=== PATIENT | male | born 1955 | race Caucasian/White ===

== ENCOUNTER 2020-03-28 06:00 | Inpatient (IN) ==
[2020-03-28] MEDS ORDERED: PHENobarb/HYOSCY/ATROPINE/SCOP 1 DOSE BOTTLE PO ONE (06:09)
[2020-03-28] MEDS ORDERED: PANTOPRAZOLE 40 MG VIAL IV ONE (06:09)
[2020-03-28] MEDS: HYDROmorphone 0.5 MG/0.5 ML SYRINGE IV PRN ×6 (06:34→13:10)
[2020-03-28 06:54] LABS: Basophils # (Auto) 0.04 K/mcL (0.00-0.20); Basophils % (Auto) 0.3 % (0.0-2.0); Eosinophils # (Auto) 0.17 K/mcL (0.00-0.70); Eosinophils % (Auto) 1.1 % (0.0-7.0); Hematocrit 46.1 % (41.0-55.0); Hemoglobin 15.9 g/dL (13.5-16.5); Lymphocytes # (Auto) 2.39 K/mcL (1.50-4.80); Lymphocytes % (Auto) 15.6 % (15.0-49.0); Mean Cell Volume 99.1 fL (80.0-100.0); Mean Corpuscular HGB Conc 34.5 g/dL (31.0-36.0); Mean Platelet Volume 11.6 fL (7.4-10.4); Monocytes # (Auto) 1.18 K/mcL (0.10-0.90); Monocytes % (Auto) 7.7 % (1.0-12.0); Neutrophils % (Auto) 75.3 % (38.0-78.0); Platelet Count 250 K/mcL (140-440); RBC 4.65 M/mcL (4.50-5.90); Red Cell Distribution Width 12.1 % (11.5-14.5); WBC 15.3 K/mcL (4.5-11.0)
[2020-03-28] MEDS ORDERED: LACTATED RINGERS 1,000 ML IV ONE (06:56)
--- NOTE | 2020-03-28 06:59 | Emergency Department Note ---
Abdominal Pain HPI General Chief Complaint: Abdominal Pain Stated Complaint: abdominal pain Time Seen by Provider: 03/28/20 06:52 Source: patient and RN notes reviewed Mode of arrival: ambulatory Limitations: no limitations History of Present Illness HPI Narrative: Narrative: This patient started having moderately severe epigastric pain about 6 hours ago. It is sharp like a hot poker and goes straight through to the back. Does not radiate anywhere else. He has never had pain like this before although he has h ad heartburn in the past. He had one episode of vomiting. He does still have his gallbladder. He says he is never any trouble with his pancreas. Denies drinking alcohol last night. Complaint: abdominal pain Onset (ago): hour(s) Consistency: constant Location: epigastric Severity: moderate Quality: stabbing and sharp Radiation: back Migration to: no migration Improves with: nothing Worsens with: nothing Related Data Home Medications Medication Instructions Recorded Confirmed methocarbamol [Robaxin] 500 mg PO PRN PRN 09/08/15 09/10/15 Previous Rx's Medication Instructions Recorded aspirin 325 mg PO BID #60 tab.ec 09/11/15 hydrocodone-acetaminophen 1 - 2 tab PO Q4HP PRN #90 tablet 09/11/15 lisinopril 20 mg PO Q6H PRN #20 tablet 09/11/15 Allergies Allergy/AdvReac Type Severity Reaction Status Date / Time No Known Drug Allergies Allergy Verified 03/28/20 06:05 Review of Systems ROS ROS Narrative: Narrative: All systems ED: reviewed and negative except as stated. [facility] Narrative Patient History Narrative: Narrative: Medical/Surgical/Family History All Active Problems (Updated 03/28/20 @ 08:17 by Paco Taylor MD) Acute cholecystitis (Acute) Social History Smoking Status: Current every day smoker Exam Narrative Narrative: Narrative: General Limitations: no limitations Head Head: Present atraumatic, normocephalic and normal inspection Eye Eye: Present normal appearance and EOMI; Absent scleral icterus and conjunctival injection ENT ENT: Present normal exam, normal oropharynx and mucous membranes moist Neck Neck: Present normal inspection and full ROM Chest Chest: Present normal inspection and symmetric chest wall rise Respiratory Respiratory: Present normal lung sounds bilaterally Cardiovascular Cardiovascular: Present regular rate, normal rhythm and normal heart sounds Adbominal Abdominal: Present soft and tenderness; Absent distention, guarding, rebound and rigidity Expanded Abdominal Abdominal Tenderness: Present epigastrium and moderate Extremities Extremities: Present normal inspection and full ROM; Absent pedal edema and pretibial edema Neurological Neurological: Present alert Psychiatric Psychiatric: Present normal affect Skin Skin: Present warm (WNL) and dry; Absent diaphoresis Course Vital Signs Vital signs: Vital Signs Temperature 98.0 F 03/28/20 06:00 Pulse Rate 62 03/28/20 06:00 Respiratory Rate 20 03/28/20 06:00 Pulse Oximetry (%) 97 03/28/20 06:00 Temperature 98.0 F 03/28/20 06:00 Pulse Rate 59 L 03/28/20 07:56 Respiratory Rate 20 03/28/20 06:00 Blood Pressure 164/65 03/28/20 07:32 Pulse Oximetry (%) 98 03/28/20 07:56 MDM MDM Narrative Medical decision making narrative: Narrative: This patient has uncomplicated cholecystitis and we will give him Zosyn. Lab Data Lab results reviewed: Yes I reviewed the patient's lab results. Lab results narrative: White blood cell count was elevated the liver function tests are unremarkable and lipase was normal. I discussed the case with our general surgeon who will come in and see the patient for admission and probably cholecystectomy this morning. Result diagrams: 03/28/20 06:17 03/28/20 06:17 Labs: Lab Results 03/28/20 03/28/20 Range/Units 06:17 06:17 WBC 15.3 H (4.5-11.0) K/mcL RBC 4.65 (4.50-5.90) M/mcL Hgb 15.9 (13.5-16.5) g/dL Hct 46.1 (41.0-55.0) % MCV 99.1 (80.0-100.0) fL MCH 34.2 H (26.0-34.0) pg MCHC 34.5 (31.0-36.0) g/dL RDW 12.1 (11.5-14.5) % Plt Count 250 (140-440) K/mcL MPV 11.6 H (7.4-10.4) fL Neut % (Auto) 75.3 (38.0-78.0) % Lymph % (Auto) 15.6 (15.0-49.0) % [place] % (Auto) 7.7 (1.0-12.0) % Eos % (Auto) 1.1 (0.0-7.0) % Baso % (Auto) 0.3 (0.0-2.0) % Lymph # (Auto) 2.39 (1.50-4.80) K/mcL [place] # (Auto) 1.18 H (0.10-0.90) K/mcL Eos # (Auto) 0.17 (0.00-0.70) K/mcL Baso # (Auto) 0.04 (0.00-0.20) K/mcL Absolute Neutrophils 11.55 H (1.80-8.00) K/mcL Sodium 135 (133-145) mmol/L Potassium 3.6 (3.3-5.1) mmol/L Chloride 102 (96-108) mmol/L Carbon Dioxide 22 (22-30) mmol/L Anion Gap 11.0 (8.0-16.0) BUN 19 (8-23) mg/dL Creatinine 1.0 (0.7-1.2) mg/dL GFR Calculation 79 Glucose 163 H (70-105) mg/dL Calcium 9.7 (8.6-10.4) mg/dL Total Bilirubin 0.6 (0.1-1.0) mg/dL AST 17 (<40) U/L ALT 17 (<40) U/L Alkaline Phosphatase 81 (39-117) U/L Total Protein 7.4 (5.9-8.4) gm/dL Albumin 4.3 (3.2-5.2) gm/dL Globulin 3.1 (2.2-3.7) gm/dL Albumin/Globulin Ratio 1.4 (1.0-2.3) Lipase 37 (7-60) U/L Radiology Data Radiology results reviewed: Yes I reviewed the patient's radiology results. Radiology results narrative: Patient is gallbladder ultrasound is abnormal with gallstones sludge and gallbladder wall thickening but normal common bile ducts. Discharge Plan Patient/Caregiver Discharge Instructions Pt seen by DIRECTOR EMBALMER/PA only: No Clinical Impression: Acute cholecystitis Patient Disposition: Xfer As Inpt ([facility]) Follow up with: Fast,Eliot, PLEXIGLAS FORMER [Primary Care Provider] - Prescriptions: No Action methocarbamol [Robaxin] 500 MG Tablet 500 mg PO PRN PRN (Reason: Muscle Spasm) RF: 0 lisinopril 20 MG Tablet 20 mg PO Q6H PRN (Reason: Hypertension) Qty: 20 RF: 0 hydrocodone-acetaminophen 1 TAB Tablet 1 - 2 tab PO Q4HP PRN (Reason: Pain) Qty: 90 RF: 0 aspirin 325 MG Tab.Ec 325 mg PO BID Qty: 60 RF: 0
[2020-03-28 07:09] LABS: ALT/SGPT 17 U/L (<40); AST/SGOT 17 U/L (<40); Albumin 4.3 gm/dL (3.2-5.2); Albumin/Globulin Ratio 1.4 (1.0-2.3); Alkaline Phosphatase 81 U/L (39-117); Bilirubin,Total 0.6 mg/dL (0.1-1.0); Blood Urea Nitrogen 19 mg/dL (8-23); Calcium 9.7 mg/dL (8.6-10.4); Carbon Dioxide 22 mmol/L (22-30); Chloride 102 mmol/L (96-108); Globulin 3.1 gm/dL (2.2-3.7); Glomerular Filtration Rate 79; Glucose 163 mg/dL (70-105)
[2020-03-28] MEDS ORDERED: PIPERACILLIN SODIUM/TAZOBACTAM 3.375 GM in DEXTROSE 5% IN WATER 50 ML IV ONE (08:12)
--- NOTE | 2020-03-28 08:18 | Ultrasound Report ---
History: Right upper quadrant pain. FINDINGS: There are several stones and a large sludge ball within the lumen of the gallbladder. There is a 5 x 6 mm stone in the neck. The gallbladder wall is thickened and inflamed. Measures 4 mm. The patient was tender while scanning over the gallbladder. No pericholecystic fluid collection is present. The common bile duct is 5 mm. The liver is echogenic due to diffuse fatty infiltration. There are two hypoechoic zones of liver parenchyma. The largest is beneath the capsule, adjacent to the gallbladder. It measures 1.4 x 2.0 x 3.2 cm. These probably represent islands of relatively normal liver surrounded by fatty infiltration. No suspicious mass is seen within the liver. Doppler shows normal blood flow in the hepatic and portal veins. The pancreas is obscured by bowel gas. No ascites is present. IMPRESSION: Cholelithiasis with cholecystitis Diffuse fatty infiltration of the liver Dr. Taylor was called with the results Interpreted and Authenticated by: Carlos Seo 03/28/20
--- NOTE | 2020-03-28 10:08 | General Surg History&Physical ---
HPI History of Present Illness Patient information: Note initiated : 03/28/20 at 9:55 am Service Date, if different from initiated Date: [] Patient: Jacob Odonnell 64 y/o M admitted on for abdominal pain. Chief Complaint:abd pain History of present illness: 64 M with 1PPD smoking hx and pre DM presents with some 10hrs of progressive RUQ pain following dinner last night. Pain is a constant marked ache at costal margin with associated emisis and malase. Pain radiates to epigastrium and along R costal margin. He has never had episodes even of less intesity that are similar in past. He feels ill. ED course - WBC 15, US shows numerous impacted stones in neck of gallbladder with wall thickening. CBC 5mm, T bili 0.6, Lipase 37 PMH HTN Pre DM Restless leg syndrome Chronic back pain PSH - hip surgery - spine surgery SOC Lives in [place], 1PPD smoker, 1 drink every month or so, no other drugs Fam Hx No family history of gallbladder disease Constitutional Constitutional: Present fatigue, lethargy and malaise EENT Eyes: Absent loss of vision Ears: Absent decreased hearing Cardiovascular Cardiovascular: Absent syncope Respiratory Respiratory: Absent excessive phlegm production Gastrointestinal Gastrointestinal: Present abdominal pain and vomiting Musculoskeletal Musculoskeletal: Present back pain Integumentary Integumentary: Absent acne Neurological Neurological: Absent loss of vision Psychiatric Psychiatric: Absent auditory hallucinations Endocrine Endocrine: Absent palpitations Allergic/Immunologic Allergic/Immunologic: Absent tongue swelling PFSH PFSH All Active Problems (Updated 03/28/20 @ 10:08 by Charlie Nunes MD) Acute cholecystitis due to biliary calculus (Acute) Acute cholecystitis (Acute) Social History smoking status: Current every day smoker MEDS/ALLERGIES Home Medications and Allergies Home Medications Medication Instructions Recorded Confirmed Type methocarbamol [Robaxin] 500 mg PO PRN PRN 09/08/15 09/10/15 History aspirin 325 mg PO BID #60 tab.ec 09/11/15 Rx hydrocodone-acetaminophen 1 - 2 tab PO Q4HP PRN #90 tablet 09/11/15 Rx lisinopril 20 mg PO Q6H PRN #20 tablet 09/11/15 Rx Allergies Allergy/AdvReac Type Severity Reaction Status Date / Time No Known Drug Allergies Allergy Verified 03/28/20 06:05 Physical Examination Vital Signs Vital signs: Temp Pulse Resp BP Pulse Ox 36.7 C 54 L 20 164/65 96 03/28/20 06:00 03/28/20 08:29 03/28/20 06:00 03/28/20 07:32 03/28/20 08:29 General physical appearance General physical exam: well nourished, no distress and moderate pain Eyes Eye exam: PERRL Head Head exam IM: Present atraumatic and normocephalic Neck Neck exam: trachea midline and no lymphadenopathy Cardiovascular Cardiovascular: RRR, strong radial pulse Respiratory Respiratory exam: normal expansion and normal respiratory effort Abdomen Abdomen: Present soft (Small umbilical hernia, no surgical scars, nondistended, dull to percussion, no HSM, tender to palpation over GB fossa with + Huynh sign, no rebound, neg bedshake, minimal localized reflexive guarding. ) Integumentary Integumentary: Present no rash Neurologic Neurologic: Present normal coordination Musculoskeletal Musculoskeletal: Present normal posture Psychiatric Psychiatric: Present oriented to time, oriented to person, oriented to place, speech is normal and memory intact Results Labs Result diagrams: 03/28/20 06:17 03/28/20 06:17 Labs: Abnormal lab results 03/28/20 03/28/20 Range/Units 06:17 06:17 WBC 15.3 H (4.5-11.0) K/mcL MCH 34.2 H (26.0-34.0) pg MPV 11.6 H (7.4-10.4) fL [place] # (Auto) 1.18 H (0.10-0.90) K/mcL Absolute Neutrophils 11.55 H (1.80-8.00) K/mcL Glucose 163 H (70-105) mg/dL Diabetes panel 03/28/20 Range/Units 06:17 Sodium 135 (133-145) mmol/L Potassium 3.6 (3.3-5.1) mmol/L Chloride 102 (96-108) mmol/L Carbon Dioxide 22 (22-30) mmol/L BUN 19 (8-23) mg/dL Creatinine 1.0 (0.7-1.2) mg/dL Glucose 163 H (70-105) mg/dL Calcium 9.7 (8.6-10.4) mg/dL AST 17 (<40) U/L ALT 17 (<40) U/L Alkaline Phosphatase 81 (39-117) U/L Total Protein 7.4 (5.9-8.4) gm/dL Albumin 4.3 (3.2-5.2) gm/dL Calcium panel 03/28/20 Range/Units 06:17 Calcium 9.7 (8.6-10.4) mg/dL Albumin 4.3 (3.2-5.2) gm/dL Pituitary panel 03/28/20 Range/Units 06:17 Sodium 135 (133-145) mmol/L Potassium 3.6 (3.3-5.1) mmol/L Chloride 102 (96-108) mmol/L Carbon Dioxide 22 (22-30) mmol/L BUN 19 (8-23) mg/dL Creatinine 1.0 (0.7-1.2) mg/dL Glucose 163 H (70-105) mg/dL Calcium 9.7 (8.6-10.4) mg/dL Adrenal panel 03/28/20 Range/Units 06:17 Sodium 135 (133-145) mmol/L Potassium 3.6 (3.3-5.1) mmol/L Chloride 102 (96-108) mmol/L Carbon Dioxide 22 (22-30) mmol/L BUN 19 (8-23) mg/dL Creatinine 1.0 (0.7-1.2) mg/dL Glucose 163 H (70-105) mg/dL Calcium 9.7 (8.6-10.4) mg/dL Total Bilirubin 0.6 (0.1-1.0) mg/dL AST 17 (<40) U/L ALT 17 (<40) U/L Alkaline Phosphatase 81 (39-117) U/L Total Protein 7.4 (5.9-8.4) gm/dL Albumin 4.3 (3.2-5.2) gm/dL All other labs normal. A/P Assessment and plan (1) Acute cholecystitis due to biliary calculus: Status: Acute Comment: 64 yo man presents with marked RUQ pain following meal last night. Now with quite tender at GB fossa with WBC 15 and US showing numerous obstructing gallstones with gallbladder wall thickening to 4mm diagnostic of acute cholecystisis. He does not have evidence of biliary obstruciton with normal CBD measurement, T bili, and lipase. Plan To OR today for lap indu, possible open, possible IOC Received PIP/NASIM in ED Starting home BP and statin meds Low dose insulin for hyperglycemia Risk of surgery including - bleeding, infection, injury to bile ducts, need for open surgery all discussed Charlie Nunes MD Time Spent With Patient Time: Total time spent is greater than 50% in coordination of care (as documented) at patient's floor/unit and/or counseling patient:
[2020-03-28 13:54] LABS: Appearance,Urine CLEAR (Clear); Bilirubin,Urine Negative (Negative); Color,Urine YELLOW; Culture Indicated,Urine No; Glucose,Urine (UA) Negative (Negative); Ketones,Urine Negative (Negative); Leukocyte Esterase,Urine Negative /ug (Negative); Mucus,Urine FEW /hpf; Nitrate,Urine Negative (Negative); Protein,Urine 30 mg/dL (Negative); Specific Gravity,Urine 1.017 (1.000-1.035); Urine Blood Negative (Negative); Urine RBC 3 /hpf (0-3); Urine Squamous Epithelial Cell 0 /hpf (0-4); Urine WBC < 1 /hpf (0-4); Urobilinogen,Urine Negative
[2020-03-28] MEDS ORDERED: KETAMINE 100 MG/ML ML ONE (15:40)
[2020-03-28] MEDS ORDERED: LIDOCAINE HCL/PF 100 MG/5 ML SYRINGE IV ONE (15:40)
[2020-03-28] MEDS ORDERED: SUGAMMADEX SODIUM 200 MG/2 ML VIAL IV ONE (15:40)
[2020-03-28] MEDS ORDERED: ONDANSETRON 4 MG/2 ML VIAL ONE (15:40)
[2020-03-28] MEDS ORDERED: HETASTARCH 6% 500 ML BAG IV ONE (15:40)
[2020-03-28] MEDS ORDERED: ROCURONIUM 10 MG/ML ML IV ONE (15:40)
[2020-03-28] MEDS ORDERED: GLUCAGON,HUMAN RECOMBINANT 1 MG VIAL ONE ×2 (15:40→18:33)
[2020-03-28] MEDS: cefTRIAXone 2 GM in DEXTROSE 5% IN WATER 50 ML IV SCH (15:40)
[2020-03-28] MEDS ORDERED: fentaNYL 250 MCG/5 ML VIAL IV ONE (15:40)
[2020-03-28] MEDS ORDERED: DEXAMETHASONE 10 MG/ML VIAL ONE (15:40)
[2020-03-28] MEDS ORDERED: PROPOFOL 200 MG/20 ML VIAL IV ONE (15:40)
[2020-03-28] MEDS: metroNIDAZOLE 500 MG/100 ML BAG IV SCH ×2 (16:00→22:11)
[2020-03-28] MEDS ORDERED: 0.9 % SODIUM CHLORIDE 250 ML IV SCH (17:30)
[2020-03-28] MEDS ORDERED: IOVERSOL 20 ML VIAL IJ ONE (18:16)
[2020-03-28] MEDS ORDERED: MEPERIDINE 25 MG/ML SYRINGE IV PRN (19:23)
[2020-03-28] MEDS ORDERED: LACTATED RINGERS 250 ML IV PRN (19:23)
[2020-03-28] MEDS ORDERED: NALOXONE HCL 0.4 MG/ML VIAL IV PRN (19:23)
[2020-03-28] MEDS ORDERED: ACETAMINOPHEN 1,000 MG/100 ML BAG IV ONE ×3 (19:23→23:17)
[2020-03-28] MEDS ORDERED: ONDANSETRON 4 MG/2 ML VIAL IV PRN ×2 (19:23→22:03)
[2020-03-28] MEDS ORDERED: PROMETHAZINE 25 MG/ML VIAL IV PRN (19:23)
[2020-03-28] MEDS ORDERED: BENZOCAINE/MENTHOL 1 LOZENGE PO PRN (19:23)
[2020-03-28] MEDS ORDERED: HYDROmorphone 0.5 MG/0.5 ML SYRINGE IV PRN (19:23)
[2020-03-28] MEDS ORDERED: fentaNYL 100 MCG/2 ML VIAL IV PRN (19:23)
[2020-03-28] MEDS ORDERED: diphenhydrAMINE 50 MG/ML VIAL IV PRN (19:23)
[2020-03-28] MEDS ORDERED: IPRATROPIUM/ALBUTEROL 3 ML AMPUL.NEB NEB PRN (19:23)
[2020-03-28] MEDS ORDERED: LACTATED RINGERS 1,000 ML IV SCH (19:30)
[2020-03-28] MEDS ORDERED: BUPIVACAINE W/EPI 0.25% 50 ML VIAL IJ ONE (19:34)
--- NOTE | 2020-03-28 20:54 | Brief Operative Note ---
Brief Operative Note Date of procedure: 03/28/20 Pre-op diagnosis: acute cholecystis Post-op diagnosis: other (1) acute cholecystitis, 2) chronic cholecystitis with leather like gallbladder, 3) extensive intraperitoneal adhesions ) Procedure: 1) Lap converted to open cholecystectomy 2) IOC 3) Lap and open RABIA 4) cystic duct repair Grafts/Implants: No Anesthesia: GETA Findings: 1) extensive intra abdominal adhesions 2) Leather like chronically thickened gallbladder to 10mm wall thickness near infundibulum - 3) R lateral bile duct injury confirmed to be a loop of cystic duct on cholangiogram. Unable to dissect tissues to clip - closed transversely with vicryl sutures. 4) Drains placed Drain A, Lateral ->morrisons pouch Drain B, medial -> GB fossa Complications: other (1) bile duct injury: identifed as cystic duct injury on cholangiogram - repaired ) Surgeon: Charlie Nunes Estimated blood loss (cc): 100 Specimens Removed/Pathology: other (Gallbladder ) Condition: stable Disposition: PACU
[2020-03-28] MEDS ORDERED: METHOCARBAMOL 750 MG TABLET PO PRN (21:40)
[2020-03-28] MEDS ORDERED: DEXTROSE 31 GM ORAL.SUSP PO PRN (21:40)
[2020-03-28] MEDS ORDERED: LOSARTAN 25 MG TABLET PO ONE (21:40)
[2020-03-28] MEDS ORDERED: HEPARIN 5,000 UNIT/ML VIAL SQ SCH ×2 (21:40→22:00)
[2020-03-28] MEDS ORDERED: INSULIN LISPRO 1 UNIT/0.01 ML UNIT SQ SCH (21:40)
[2020-03-28] MEDS ORDERED: INSULIN GLARGINE, HUMAN 1 UNIT/0.01 ML SQ SCH ×2 (21:40→22:00)
[2020-03-28] MEDS ORDERED: ATORVASTATIN 10 MG TABLET PO SCH (21:40)
[2020-03-28] MEDS ORDERED: DEXTROSE 50% 50 ML VIAL IV PRN (21:40)
[2020-03-28] MEDS ORDERED: INSULIN LISPRO 1 UNIT/0.01 ML UNIT SQ ONE (21:47)
[2020-03-28] MEDS ORDERED: hydrALAZINE 20 MG/ML VIAL IV PRN (22:02)
[2020-03-28] MEDS ORDERED: PROMETHAZINE 50 MG/ML AMPUL IM PRN (22:03)
[2020-03-28] MEDS ORDERED: METHOCARBAMOL 750 MG TABLET PO SCH (22:15)
[2020-03-28] MEDS: LACTATED RINGERS 1,000 ML IV SCH (22:39)
[2020-03-28] MEDS ORDERED: INSULIN GLARGINE, HUMAN 1 UNIT/0.01 ML SQ ONE (23:49)
[2020-03-28] MEDS: HEPARIN 5,000 UNIT/ML VIAL SQ SCH (23:50)
[2020-03-28] MEDS: ATORVASTATIN 20 MG TABLET PO SCH (23:56)
[2020-03-28] MEDS: GABAPENTIN 300 MG CAPSULE PO SCH (23:56)
[2020-03-28] MEDS: POLYETHYLENE GLYCOL 3350 17 GM PACKET PO SCH (23:59)
[2020-03-29] MEDS: ACETAMINOPHEN 325 MG TABLET PO SCH ×5 (00:25→23:36)
[2020-03-29] MEDS: LACTATED RINGERS 1,000 ML IV SCH ×2 (00:31→10:53)
[2020-03-29] MEDS: morphine 4 MG/ML VIAL IV PRN ×8 (03:21→23:37)
[2020-03-29] MEDS: INSULIN LISPRO 1 UNIT/0.01 ML UNIT SQ SCH ×4 (05:23→22:00)
[2020-03-29] MEDS: HEPARIN 5,000 UNIT/ML VIAL SQ SCH ×3 (05:33→21:10)
[2020-03-29] MEDS: metroNIDAZOLE 500 MG/100 ML BAG IV SCH (05:33)
[2020-03-29] MEDS ORDERED: ACETAMINOPHEN 325 MG TABLET PO ONE (05:35)
[2020-03-29 06:46] LABS: Basophils # (Auto) 0.01 K/mcL (0.00-0.20); Basophils % (Auto) 0.1 % (0.0-2.0); Eosinophils # (Auto) 0 K/mcL (0.00-0.70); Eosinophils % (Auto) 0 % (0.0-7.0); Hematocrit 39.6 % (41.0-55.0); Hemoglobin 13.4 g/dL (13.5-16.5); Lymphocytes # (Auto) 0.67 K/mcL (1.50-4.80); Lymphocytes % (Auto) 6.1 % (15.0-49.0); Mean Corpuscular HGB Conc 33.8 g/dL (31.0-36.0); Mean Platelet Volume 11.9 fL (7.4-10.4); Monocytes # (Auto) 0.65 K/mcL (0.10-0.90); Monocytes % (Auto) 5.9 % (1.0-12.0); Neutrophils % (Auto) 87.9 % (38.0-78.0); Platelet Count 208 K/mcL (140-440); RBC 3.92 M/mcL (4.50-5.90); Red Cell Distribution Width 12.2 % (11.5-14.5)
[2020-03-29 07:14] LABS: Blood Urea Nitrogen 14 mg/dL (8-23); Calcium 8.3 mg/dL (8.6-10.4); Carbon Dioxide 23 mmol/L (22-30); Chloride 102 mmol/L (96-108); Glomerular Filtration Rate 95; Glucose 122 mg/dL (70-105)
[2020-03-29] MEDS: LACTOBACILLUS 1 CAPSULE PO SCH ×2 (08:23→20:57)
[2020-03-29] MEDS: POLYETHYLENE GLYCOL 3350 17 GM PACKET PO SCH (08:23)
[2020-03-29] MEDS: amLODIPine 10 MG TABLET PO SCH (08:23)
[2020-03-29] MEDS: GABAPENTIN 300 MG CAPSULE PO SCH (08:23)
[2020-03-29] MEDS ORDERED: ATORVASTATIN 20 MG TABLET PO SCH (09:00)
[2020-03-29] MEDS ORDERED: amLODIPine 10 MG TABLET PO SCH (09:00)
[2020-03-29] MEDS: cefTRIAXone 2 GM in DEXTROSE 5% IN WATER 50 ML IV SCH (09:05)
--- NOTE | 2020-03-29 09:06 | XRay Report ---
HISTORY: FINDINGS: IMPRESSION: 1.3 minutes of fluoroscopy time was used. Interpreted and Authenticated by: Carlos Seo 03/29/20
[2020-03-29] MEDS ORDERED: MAGNESIUM SULFATE 8.12 MEQ/2 ML VIAL IV ONE (09:28)
[2020-03-29] MEDS ORDERED: MAGNESIUM SULFATE 2 GM/50 ML BAG IV ONE (09:30)
--- NOTE | 2020-03-29 09:58 | General Surgery Progress Note ---
SUBJECTIVE Subjective Patient information: Note initiated : 03/29/20 at 9:49 am Service Date, if different from initiated Date: [] Patient: Jacob Odonnell 64 y/o M admitted on 03/28/20 for abdominal pain. Chief Complaint: Events - none S: feeling resonably well this am, still with significant incisinal pain. No flatus or BM, occational burping, feels distended. O: VSS Good UOP Abd drains - non bilious, minimal output, serrous to serosang Breathing easily on RA Abd soft, distended, tympanitic, dressings dry periphery warm WBC 11 Cr 0.8 A/P 64 yo man POD1 s/p lap to open difficult CCY with extensive fibrotic thickening of gallbladder wall. IOC performed - clean. Now recovering well. No bile leak. Early Ileus Plan: Multimodal therapy - APAP, gabapentin, methocarbamol, celecoxib, morphine Stop abx Remove reyes catheter on insulin for stress hyperglycemia Has ileus - NGT if vomiting or signficant nausea, clears OK unless nauseated FEN - LR to 35, Replete Mg, Clears Proph - Miralax, heparin sub Q Charlie Nunes MD Constitutional Vitals: Vital Signs Temp Pulse Resp BP Pulse Ox 36.6 C 71 16 154/72 94 03/29/20 06:56 03/29/20 06:56 03/29/20 06:56 03/29/20 06:56 03/29/20 06:56 Period Temp Pulse Resp BP Sys/Chi Pulse Ox Last 24 Hr 36.2 C-36.7 C 48-73 10-20 114-169/52-81 90-100 Intake and Output 03/28/20 03/29/20 03/29/20 21:59 05:59 13:59 Intake Total 2100 573 700 Output Total 220 2775 900 Balance 1880 200 Weight 95.396 kg Intake & Output: Intake & Output 03/28/20 03/29/20 03/29/20 21:59 05:59 13:59 Intake Total 2100 573 700 Output Total 220 2775 900 Balance 1880 -2201200 Weight 95.396 kg Intake: IV 100 573 100 OFIRMEV 1,000 mg In 100 ml @ 0 100 mls/hr IV .[facility] Rx#: [id number] Lactated Ringers 1,000 ml @ 20 223 mls/hr IV .Q[facility]H [facility] Rx#: [id number] Rocephin 2 gm In Dextrose 5% in 50 Water 50 ml @ 100 mls/hr IV DAILY [facility] Rx#:[id number] Oral 600 IV - Manual Only 1999 Output: Drainage 20 25 REGINA drain A 15 REGINA drain B 10 Right Lower Abdomen 20 Urine Catheter Amount 200 2750 900 Other: Meal Breakfast Percent of Meal Consumed 100% Feeding Ability Independent Urine Appearance Clear Clear Uretheral (Reyes) Clear Clear Clear Urine Color Dark Yellow Bright Yellow Bright Yellow Uretheral (Reyes) Dark Yellow Straw Bright Yellow Urine Odor Normal A/P Time Spent With Patient Time: Total time spent is greater than 50% in coordination of care (as documented) at patient's floor/unit and/or counseling patient:
[2020-03-29] MEDS: CELECOXIB 200 MG CAPSULE PO SCH ×2 (10:53→20:57)
[2020-03-29] MEDS: GABAPENTIN 400 MG CAPSULE PO SCH ×2 (13:41→21:10)
[2020-03-29] MEDS: METHOCARBAMOL 750 MG TABLET PO SCH ×2 (15:40→20:57)
[2020-03-29] MEDS: ATORVASTATIN 20 MG TABLET PO SCH (20:58)
[2020-03-29] MEDS: INSULIN GLARGINE, HUMAN 1 UNIT/0.01 ML SQ SCH (21:29)
[2020-03-30] MEDS: METHOCARBAMOL 750 MG TABLET PO SCH ×4 (03:02→21:21)
[2020-03-30] MEDS: ACETAMINOPHEN 325 MG TABLET PO SCH ×3 (05:17→17:28)
[2020-03-30] MEDS: HEPARIN 5,000 UNIT/ML VIAL SQ SCH (05:17)
[2020-03-30] MEDS: GABAPENTIN 400 MG CAPSULE PO SCH ×3 (05:17→21:12)
[2020-03-30] MEDS: morphine 4 MG/ML VIAL IV PRN ×3 (05:22→10:46)
[2020-03-30] MEDS: INSULIN LISPRO 1 UNIT/0.01 ML UNIT SQ SCH ×4 (07:31→21:11)
[2020-03-30 07:38] LABS: Blood Urea Nitrogen 14 mg/dL (8-23); Calcium 8.3 mg/dL (8.6-10.4); Carbon Dioxide 28 mmol/L (22-30); Chloride 100 mmol/L (96-108); Glomerular Filtration Rate 90; Glucose 120 mg/dL (70-105)
[2020-03-30] MEDS: amLODIPine 10 MG TABLET PO SCH (08:25)
[2020-03-30] MEDS: CELECOXIB 200 MG CAPSULE PO SCH ×3 (08:25→21:21)
[2020-03-30] MEDS: LACTOBACILLUS 1 CAPSULE PO SCH ×2 (08:26→21:12)
[2020-03-30] MEDS: POLYETHYLENE GLYCOL 3350 17 GM PACKET PO SCH ×2 (08:26→21:13)
[2020-03-30] MEDS: LACTATED RINGERS 1,000 ML IV SCH (11:03)
[2020-03-30] MEDS ORDERED: morphine 4 MG/ML VIAL IV PRN (11:53)
--- NOTE | 2020-03-30 12:01 | General Surgery Progress Note ---
SUBJECTIVE Subjective Patient information: Note initiated : 03/30/20 at 11:57 am Service Date, if different from initiated Date: [] Patient: Jacob Odonnell 64 y/o M admitted on 03/28/20 for abdominal pain. Chief Complaint: chronic cholecystitis Chief Complaint: Events - none S: feeling great this morning, + flatus, less distended, tolerating liquids, no BM, Some burping still O: VSS Good UOP Abd drains - non bilious, minimal output: Morrisons pouch - 30, GB fossa 10ml, Breathing easily on RA Abd soft, distended, tympanitic, dressings removed, Wounds CDI periphery warm A/P 64 yo man POD2 s/p lap to open, difficult CCY with extensive fibrotic thickening of gallbladder wall. IOC performed - clean. Now recovering well. No bile leak. Ileous starting to resolve Plan: Multimodal therapy - APAP, gabapentin, methocarbamol, celecoxib, morphine, PO oxycodone once on diet. Off abx Voiding on insulin for stress hyperglycemia OK for diet once less distended and no longer burping. FEN - Stopping IVF, E good , Clears Proph - Miralax, enoxaparin Charlie Nunes MD Constitutional Vitals: Vital Signs Temp Pulse Resp BP Pulse Ox 36.5 C 58 L 16 151/75 91 03/30/20 11:43 03/30/20 11:43 03/30/20 11:43 03/30/20 11:43 03/30/20 11:43 Period Temp Pulse Resp BP Sys/Chi Pulse Ox Last 24 Hr 36.3 C-36.8 C 55-60 16-20 131-152/69-75 91-94 Intake and Output 03/29/20 03/30/20 03/30/20 21:59 05:59 13:59 Intake Total 360 480 720 Output Total 595 895 725 Balance -235 -415 -5 Weight 92.533 kg Intake & Output: Intake & Output 03/29/20 03/30/20 03/30/20 21:59 05:59 13:59 Intake Total 360 480 720 Output Total 595 895 725 Balance -235 -415 -5 Weight 92.533 kg Intake: Oral 360 480 720 Output: Drainage 20 20 25 REGINA drain A 10 20 20 REGINA drain B 10 5 Void Amount 575 875 700 Other: Meal Dinner Breakfast Percent of Meal Consumed 50% 100% Feeding Ability Independent Independent Urine Appearance Clear Clear Clear Urine Color Bright Yellow Bright Yellow Bright Yellow Urine Odor Normal Normal # Voids 1 A/P Time Spent With Patient Time: Total time spent is greater than 50% in coordination of care (as documented) at patient's floor/unit and/or counseling patient:
[2020-03-30] MEDS: ENOXAPARIN 40 MG/0.4 ML SYRINGE SQ SCH (13:17)
[2020-03-30] MEDS ORDERED: morphine 2 MG/ML VIAL IV PRN (17:46)
[2020-03-30] MEDS ORDERED: morphine 2 MG/ML VIAL ONE ×2 (17:58→19:43)
[2020-03-30] MEDS: INSULIN GLARGINE, HUMAN 1 UNIT/0.01 ML SQ SCH (21:10)
[2020-03-30] MEDS: ATORVASTATIN 20 MG TABLET PO SCH (21:12)
[2020-03-30] MEDS ORDERED: oxyCODONE HCL 5 MG TABLET PO ONE (22:27)
[2020-03-31] MEDS: ACETAMINOPHEN 325 MG TABLET PO SCH ×4 (00:18→17:26)
[2020-03-31] MEDS: oxyCODONE HCL 5 MG TABLET PO PRN ×3 (02:53→14:34)
[2020-03-31] MEDS: METHOCARBAMOL 750 MG TABLET PO SCH ×3 (02:53→14:34)
[2020-03-31] MEDS ORDERED: oxyCODONE HCL 5 MG TABLET PO ONE (02:57)
[2020-03-31] MEDS: GABAPENTIN 400 MG CAPSULE PO SCH ×2 (05:37→14:34)
[2020-03-31 07:52] LABS: Blood Urea Nitrogen 11 mg/dL (8-23); Calcium 8.4 mg/dL (8.6-10.4); Carbon Dioxide 26 mmol/L (22-30); Chloride 101 mmol/L (96-108); Glomerular Filtration Rate 95; Glucose 120 mg/dL (70-105)
[2020-03-31] MEDS: ENOXAPARIN 40 MG/0.4 ML SYRINGE SQ SCH (08:28)
[2020-03-31] MEDS: INSULIN LISPRO 1 UNIT/0.01 ML UNIT SQ SCH ×3 (08:28→17:26)
[2020-03-31] MEDS: LACTOBACILLUS 1 CAPSULE PO SCH (08:28)
[2020-03-31] MEDS: CELECOXIB 200 MG CAPSULE PO SCH (08:28)
[2020-03-31] MEDS: amLODIPine 10 MG TABLET PO SCH (08:29)
[2020-03-31] MEDS: POLYETHYLENE GLYCOL 3350 17 GM PACKET PO SCH (08:29)
[2020-03-31] MEDS ORDERED: POLYETHYLENE GLYCOL 3350 17 GM PACKET PO SCH (09:00)
--- NOTE | 2020-03-31 13:30 | Operative Note ---
DATE OF OPERATION: 03/28/2020 PREOPERATIVE DIAGNOSIS: Acute cholecystitis. POSTOPERATIVE DIAGNOSES: 1. Acute cholecystitis. 2. Chronic cholecystitis with leather-like gallbladder. 2. Extensive intraperitoneal adhesions. PROCEDURE: 1. Laparoscopic converted to open cholecystectomy. 2. Intraoperative cholangiogram. 3. Laparoscopic as well as open lysis of adhesions. 3. Cystic duct repair. SURGEON: Charlie Nunes M.D. ASSISTANTS: None. INDICATIONS: This is a 64-year-old man who presented to the Emergency Department with approximately 10 hours of marked right upper quadrant pain. He oddly denied any prior history of right upper quadrant pain, but per his , he had had chronic what he felt was the gastric pain for perhaps decades. He was found to have a gallstone-filled gallbladder with wall thickening. He had a leukocytosis of 15,000. He was taken to the operating room for management. FINDINGS: 1. Extensive intra-abdominal adhesions preventing laparoscopic surgery. 2. Leather-like chronically thickened gallbladder to 10 mm of wall thickness near the infundibulum, difficult to identify anatomic landmarks. 3. Right lateral bile duct injury confirmed to be an loop of cystic duct on cholangiogram. Unable to dissect tissues in order to clip cystic duct. The cystic duct was closed transversely with Vicryl sutures 4. Two drains were placed with locations as below. Drain A is lateral and drains Morison's pouch. Drain B is medial and drains in the gallbladder fossa. DESCRIPTION OF PROCEDURE: The patient was brought to the operating room. He was prepped and draped in the usual sterile fashion. A timeout was completed. Entry into the abdomen was performed using Veress needle technique. A small stab incision was made at Dixon's point. A Veress needle was advanced with a distinct click. There is no succuss or blood aspirated and there was a confirmatory saline drop test. The abdomen was insufflated to 15 mmHg with early insufflation pressures low. Next, using Visiport technique, a 5 mm trocar was advanced just to the right of the umbilicus through a small incision. All layers of the abdominal wall were visualized as it entered into the dark space of the insufflated the abdomen. Upon inspecting the area, this was a pocket walled by multiple adhesions and indeed it looked like there was a segment of adherent greater omentum that had been entered through at the roof of the space. There was no bleeding and no injury identified. I identified a small adjacent pocket and was able to place a second 5 mm port with direct visualization quite low in the abdomen. Using this port, I looked back at the original port site, which was again a small area free of adhesions. Using laparoscopic Juliette I was able to widen the spaces and get a third [address]. I began then to progress a lysis of adhesions between the abdominal viscera and the anterior abdominal wall moving in the direction of the right upper quadrant. At this point, however, I encountered multiple loops of small bowel densely adherent to the anterior abdominal wall without a clear dissection plane between them. As a consequence, the decision was made to convert to open. All but one of the ports was withdrawn under direct visualization, including the port that went through the omentum and thus confirming the absence of any bleeding in that area. Next, a right subcostal Vasile incision was made approximately 1 fingerbreadth below the costal margin. This was carried through the skin and subcutaneous tissues. The anterior rectus fascia was incised as well as the internal and external obliques. The abdomen was entered through the posterior fascia of the rectus abdominis on the right side. This was done between clamps and Metzenbaums, I was able to sweep out an area free of adhesions with my finger and then was able to open the incision more widely. This was carried from the anterior axillary line to several centimeters short of the midline on the right side. At this point, a Bookwalter retractor was placed and I began dissecting the significantly adherent greater omentum and fatty tissue, identifying the gallbladder fundus, I was able to finger fracture down along the gallbladder working posteriorly, so that the inferior surface of the gallbladder was free of the viscera. There were several adhesions to the duodenum, which were meticulously lysed with Metzenbaum. With this dissection space now made available, the Bookwalter retractors were extended deeper into the abdomen, elevating the inferior surface of the liver as well as packing the viscera inferiorly. At this point, a pursestring was made at the tip of the gallbladder fundus and using a decompressive cannula, the gallbladder contents were aspirated. The first suture was then snugged so as to prevent leak. We then proceeded to incise the parietal peritoneum on the medial and lateral aspect of the gallbladder, working from top down. There was a readily dissectible plane between the gallbladder and the gallbladder fossa, which permitted the anterior half to two-thirds of the gallbladder to be dissected relatively easily; however, upon moving into the vicinity of the infundibulum, there were simply no tissue planes that were at all amenable to dissection. Instead, there was extensive thickening as great as 10 mm around the infundibulum of the gallbladder. In order to maintain orientation, the gallbladder wall was opened. I proceeded to leave the back wall in place, taking down only the anterior wall. The gallstone contents were evacuated. As I was dissecting on the lateral aspect of the gland being close to the mucosa, I encountered bile coming from a structure. I stopped the dissection in this area and amputated the free aspects of the gallbladder wall, so as to provide better visualization. The area was irrigated out. I identified that there was a cuff of infundibulum left. Just lateral to this there was another structure that appeared to be draining bile. I initially was concerned for a bile duct injury. As a consequence, a cholangiogram was performed. This was using a small 8-Latvian pediatric catheter as this was available. I shortened the tip so that the catheter would not be insinuated unduly deeply into the biliary tree. At this point, the Vazquez catheter was threaded into the duct injury. The balloon was carefully inflated and it sealed without undue leak. A cholangiogram was shot. This showed initial drainage out into the infundibulum and a stone was flushed upwards as well. The stone was removed and the infundibulum was closed after fulgurating the easily visible mucosal tissue. The infundibulum was closed using a total of 4 interrupted 2-0 Vicryl sutures passed through the adjacent wall of the residual gallbladder. The cholangiogram then was able to be shot without incident. It demonstrated that the duct injury was simply a loop of cystic duct. The remainder of the cystic duct was quite long, perhaps 4 cm in length, flow distal to the site of injury. There was good retrograde flow to the right and left hepatic arteries. There was an aberrant takeoff of the a right posterior sectoral duct from the very distal cystic duct, but this was well aware from the area of dissection. There was good egress of contrast into the duodenum and there were no filling defects. At this point, I am convinced there was no central bile duct injury. The cholangiogram catheter was removed and the site of duct injury was closed transversely with multiple 4-0 simple interrupted Vicryl sutures through the bile duct. The area was inspected for some time afterwards and there was no bile leaking. At this point, the entire area was copiously irrigated and suctioned dry including the irrigation of Morison's pouch. Several areas of minimal amount of bleeding were cauterized. Of note, there was not a distinct cystic artery identified in the thickened leather wall of the gallbladder. There had been, during the course of the takedown, a site of arterial bleeding from a miniscule vessel that was easily ligated with a 4-0 Vicryl [id number] suture. After irrigation, drains were placed. These were 10 mm fully perforated REGINA drains with a lateral drain placed in Morison's pouch and a medial drain placed directly over the gallbladder fossa. A small piece of pedicalized omentum was then placed into the gallbladder fossa over the area of the bile duct repair and the infundibulum closure. Next, local anesthetic was infiltrated copiously throughout the wounds as well as into the fascial layers. Fascia was closed using 2 layers using 0 Vicryl simple interrupted sutures to close the transversalis posterior rectus sheath and internal oblique layer and looped #0 Maxon was used to close the anterior sheath and external oblique layer. The subcutaneous tissue was then irrigated and skin was closed, including the previously placed port sites with deep dermal Vicryl and monofilament absorbable suture in a subcuticular fashion. The drains were sutured in place. Dressings were applied. The patient was extubated to PACU without incident. ESTIMATED BLOOD LOSS: Approximately 100 mL. COMPLICATIONS: Cystic duct injury as above. IMPLANTS: None. SPECIMENS: Gallbladder. [email or web address] Job ID: [id number] Doc ID: [id number] Charlie GREEN
--- NOTE | 2020-03-31 17:10 | Discharge Summary ---
Discharge Provider Provider Patient information: Note initiated : 03/31/20 at 5:03 pm Service Date, if different from initiated Date: [] Patient: Jacob Odonnell 64 y/o M admitted on 03/28/20 for abdominal pain. Chief Complaint: [] Date of admission: 03/28/20 21:29 Discharge date: 03/31/20 Primary care physician: OMAR Moreno Admitting clinician: Charlie Nunes Attending physician on admission: Charlie Nunes Consults: 03/28/20 08:16 Consult to Physician [CONS] Stat Comment: Consulting Provider: Charlie Nunes Reason For Exam: Physician to Consult Attending physician on discharge: Elvira Whittaker Discharging clinician: Elvira Whittaker COURSE Hospital Course Hospital course: 64-year-old male admitted with acute severe abdominal pain with nausea, vomiting. Evaluation revealed acute cholecystitis with cholelithiasis. He had an open cholecystectomy with cholangiogram on 29 March. He has progress nicely. His pain is controlled with oral medications. He denies nausea or vomiting. He is tolerating diet without difficulty. His drains reveals serosanguineous fluid without any bilious drainage. Patient is stable for discharge home. Discharge diagnosis: acute cholecystitis with cholelithiasis Reason for admission: abdominal pain nausea and vomiting Procedures: open cholecystectomy Pertinent studies/significant findings: upper abdominal ultrasound Complications: none Time Spent with Patient Time attestation: Total time spent providing and/or coordinating discharge services: Physical Examination Vital Signs Vital signs: Temp Pulse Resp BP Pulse Ox 97.8 F 54 L 18 148/73 95 03/31/20 11:56 03/31/20 11:56 03/31/20 11:56 03/31/20 11:56 03/31/20 11:56 General physical appearance General physical exam: well nourished, no distress and moderate pain Eyes Eye exam: PERRL Head Head exam IM: Present atraumatic and normocephalic Cardiovascular Cardiovascular: RRR, strong radial pulse Respiratory Respiratory exam: normal expansion and normal respiratory effort Abdomen Abdomen: Present soft and tender (moderate incisional tenderness; drains with serosanguineous drainage) Integumentary Integumentary: Present no rash Neurologic Neurologic: Present normal coordination Psychiatric Psychiatric: Present oriented to time, oriented to person, oriented to place, speech is normal and memory intact Discharge Plan Patient/Caregiver Discharge Instructions Activity: increase activity as tolerated Diet: Regular Diet and Low Fat Prescriptions: New oxycodone-acetaminophen [Endocet] 10-325 mg Tablet 1 tab PO Q4H PRN (Reason: Pain) Qty: 60 RF: 0 Continued lisinopril 20 mg Tablet 20 mg PO QDAY RF: 0 ibuprofen 200 mg Tablet 800 mg PO BIDP PRN (Reason: Pain) RF: 0 gabapentin 300 mg Capsule 300 mg PO HS RF: 0 Follow Up Plan Follow up with: Eliot Albert ARNP [Primary Care Provider] - Elvira Whittaker MD [Physician] - 04/15/20 10:45 am Patient Disposition: Home, Self-Care Prognosis: Good Rehab Potential: Good I certify that the patient requires SNF services: No Overall status at discharge: patient is progressing back to baseline Discharge Orders: Discharge Order (Routine); Ordered 03/31/20 Ordered By: Elvira Whittaker Pending Pending Pending: Resuscitation Status Full Code Diet Full Liquid Diet Start Sun Mar 30 2102 Acetaminophen (Tylenol) 650 mg PO Q6H Critical [facility] hospital Admin: 03/31/20 11:31 Dose: 650 mg Documented by: Admin: 03/31/20 05:38 Dose: 650 mg Documented by: Admin: 03/31/20 00:18 Dose: 650 mg Documented by: Admin: 03/30/20 17:28 Dose: 650 mg Documented by: Admin: 03/30/20 11:51 Dose: 650 mg Documented by: Admin: 03/30/20 05:17 Dose: 650 mg Documented by: Admin: 03/29/20 23:36 Dose: 650 mg Documented by: Admin: 03/29/20 17:46 Dose: 650 mg Documented by: Admin: 03/29/20 12:42 Dose: 650 mg Documented by: Admin: 03/29/20 05:43 Dose: Not Given Documented by: Admin: 03/29/20 00:25 Dose: Not Given Documented by: STEFANO Amlodipine Besylate (Norvasc) 10 mg PO DAILY [facility] Last Admin: 03/31/20 08:29 Dose: 10 mg Documented by: Admin: 03/30/20 08:25 Dose: 10 mg Documented by: Admin: 03/29/20 08:23 Dose: 10 mg Documented by: ROSEMARY Atorvastatin Calcium (Lipitor) 20 mg PO HS [facility] Last Admin: 03/30/20 21:12 Dose: 20 mg Documented by: Admin: 03/29/20 20:58 Dose: 20 mg Documented by: Admin: 03/28/20 23:56 Dose: 20 mg Documented by: STEFANO Celecoxib (Celebrex) 200 mg PO BID [facility] Last Admin: 03/31/20 08:28 Dose: 200 mg Documented by: Admin: 03/30/20 21:21 Dose: 200 mg Documented by: SOUMYA Diagnostic Test (Pha) (Accu-Chek) 1 each FS ACHS [facility] Admin: 03/31/20 11:31 Dose: 1 each Documented by: Admin: 03/31/20 08:28 Dose: 1 each Documented by: Admin: 03/30/20 21:11 Dose: 1 each Documented by: Admin: 03/30/20 17:22 Dose: 1 each Documented by: Admin: 03/30/20 11:51 Dose: 1 each Documented by: Admin: 03/30/20 07:30 Dose: 1 each Documented by: Admin: 03/29/20 21:16 Dose: 1 each Documented by: Admin: 03/29/20 16:45 Dose: 1 each Documented by: ROSEMARY Enoxaparin Sodium (Lovenox) 40 mg SQ DAILY [facility] Admin: 03/31/20 08:28 Dose: 40 mg Documented by: Admin: 03/30/20 13:17 Dose: 40 mg Documented by: ROSEMARY Gabapentin (Neurontin) 400 mg PO Q8 [facility] Admin: 03/31/20 14:34 Dose: 400 mg Documented by: Admin: 03/31/20 05:37 Dose: 400 mg Documented by: Admin: 03/30/20 21:12 Dose: 400 mg Documented by: Admin: 03/30/20 13:17 Dose: 400 mg Documented by: Admin: 03/30/20 05:17 Dose: 400 mg Documented by: Admin: 03/29/20 21:10 Dose: 400 mg Documented by: Admin: 03/29/20 13:41 Dose: 400 mg Documented by: ROSEMARY Insulin Glargine (Lantus) 8 unit SQ [facility] Last Admin: 03/30/20 21:10 Dose: 8 unit Documented by: Admin: 03/29/20 21:29 Dose: 8 unit Documented by: STEFANO Insulin Human Lispro (Humalog) 0 unit SQ [facility]; Protocol Last Admin: 03/31/20 11:31 Dose: Not Given Documented by: Admin: 03/31/20 08:28 Dose: Not Given Documented by: Admin: 03/30/20 21:11 Dose: Not Given Documented by: Admin: 03/30/20 17:23 Dose: Not Given Documented by: Admin: 03/30/20 11:51 Dose: Not Given Documented by: Admin: 03/30/20 07:31 Dose: Not Given Documented by: Admin: 03/29/20 22:00 Dose: Not Given Documented by: Admin: 03/29/20 16:45 Dose: Not Given Documented by: ROSEMARY Lactobacillus Rhamnosus (Culturelle) 1 cap PO BID [facility] Last Admin: 03/31/20 08:28 Dose: 1 cap Documented by: Admin: 03/30/20 21:12 Dose: 1 cap Documented by: Admin: 03/30/20 08:26 Dose: 1 cap Documented by: Admin: 03/29/20 20:57 Dose: 1 cap Documented by: Admin: 03/29/20 08:23 Dose: 1 cap Documented by: ROSEMARY Methocarbamol (Robaxin) 750 mg PO Q6H [facility] Last Admin: 03/31/20 14:34 Dose: 750 mg Documented by: Admin: 03/31/20 08:32 Dose: 750 mg Documented by: Admin: 03/31/20 02:53 Dose: 750 mg Documented by: Admin: 03/30/20 21:21 Dose: 750 mg Documented by: Admin: 03/30/20 15:02 Dose: 750 mg Documented by: Admin: 03/30/20 08:25 Dose: 750 mg Documented by: Admin: 03/30/20 03:02 Dose: 750 mg Documented by: Admin: 03/29/20 20:57 Dose: 750 mg Documented by: Admin: 03/29/20 15:40 Dose: 750 mg Documented by: ROSEMARY Morphine Sulfate (Morphine) 2 mg IV Q2HP PRN; Protocol PRN Reason: Per Pain Protocol Last Admin: 03/30/20 19:39 Dose: 2 mg Documented by: SOUMYA Oxycodone HCl (Roxicodone) 5 - 10 mg PO Q4HP PRN; Protocol PRN Reason: Per Pain Protocol Last Admin: 03/31/20 14:34 Dose: 5 mg Documented by: Admin: 03/31/20 08:29 Dose: 5 mg Documented by: Admin: 03/31/20 02:53 Dose: 5 mg Documented by: SOUMYA Polyethylene Glycol (Miralax) 17 gm PO BID [facility] Last Admin: 03/31/20 08:29 Dose: Not Given Documented by: Admin: 03/30/20 21:13 Dose: 17 gm Documented by: SOUMYA Shift Summary 03/30/20 15:51 Shift Summary by Lindsay Chandler Addendum entered by Lindsay Chandler R.N. 03/30/20 17:47: Patient had pain 8/10 2.5 hours after 2gm Morphine administration. Messaged , order changed from 2mg Morphine q4 to q2 hours. Original Note: Patient A&Ox4, VSS on RA except for slight HTN up to SBP 150, PRN orders for SBP >170 or DBP>100. IV to RH SL. Patient tolerating CL diet with no complaints of nausea or increased discomfort. Patient is passing increased gas. Patient voiding sufficient amounts. Patient up ambulating in the chandler with FWW and SBA. Morphine 4mg given x2. MD changed patients pain medication to Morphine 2mg every 4 hours and patient became very upset. Patient stated he "might as well go home if I have to sit in pain". Patient stated he did not understand why "he (the doctor) took away my pain medication 48 hours after surgery". Informed patient he still has pain medication available, patient still in fear he will sit in pa in between doses. Notified MD, who stated to give ordered medication and notify him if pain is uncontrolled. Scheduled Tylenol and Robaxin also being given. Patient has 4 lap sites, surgical incision, and 2 REGINA drains open to air per instruction from MD. Two skin tears noted, right lateral side and left lower abdomen post tegaderm removal. REGINA A with sanguinous drainage and REGINA B serosanguineous. Will update at bedside. Initialized on 03/30/20 15:51 - END OF NOTE
--- NOTE | 2020-04-01 12:09 | Surgical Pathology Report ---
Histology Microscopic Diagnosis Specimen A- GALLBLADDER, CHOLECYSTECTOMY: --- ACUTE AND CHRONIC CHOLECYSTITIS WITH CHOLELITHIASIS. (RLF:sln) Procedural Impression Acute cholecystitis. Gross Description Received in formalin labeled gallbladder, is a previously opened gallbladder that measures 7.2 x 4.3 x 1.8 cm. The serosa is pink to purple-mcnamara and mottled with brown-mcnamara hemorrhagic areas. The mucosa is velvety pink-mcnamara with mottled brown-mcnamara possibly necrotic areas present. The wall is up to 0.7 cm. Within the container there are multiple brown-mcnamara irregular stones ranging in size from 0.1 to 0.8 cm in greatest dimension. Body Fitter sections submitted in two cassettes with the duct in A1 and workforce services representative sections of mucosal surface in A2. (KGW:sln) Electronically Signed Reshma Munguia MD, FCAP Electronically Signed 04/01/2020 12:09 PM
== END 2020-03-31 18:40 | disposition home or self-care (01) | DRG 409 ==
LOC: ED 06:00 → SUR 13:38 → MEDSUR 21:29
PROVIDERS: ADMIT Surgery; ATTEND Family Medicine Adult Medicine

== ENCOUNTER 2023-07-26 01:33 | Inpatient (IN) ==
[2023-07-26] MEDS ORDERED: IOPAMIDOL 100 ML BOTTLE IV ONE (01:34)
[2023-07-26] MEDS: ONDANSETRON 4 MG/2 ML VIAL IV ONE (02:14)
[2023-07-26] MEDS: 0.9 % SODIUM CHLORIDE 1,000 ML IV ONE (02:14)
[2023-07-26] MEDS: KETOROLAC 15 MG/ML VIAL IV ONE (02:15)
[2023-07-26 02:27] LABS: Basophils # (Auto) 0.02 K/mcL (0.00-0.30); Basophils % (Auto) 0.2 % (0.0-2.0); Eosinophils # (Auto) 0.12 K/mcL (0.00-0.70); Eosinophils % (Auto) 1.3 % (0.0-7.0); Hematocrit 47.2 % (40.1-51.0); Hemoglobin 16.4 g/dL (13.7-17.5); Lymphocytes % (Auto) 21.4 % (15.5-49.0); Mean Corpuscular HGB Conc 34.7 g/dL (31.0-36.0); Mean Platelet Volume 10.9 fL (8.8-12.5); Monocytes # (Auto) 0.69 K/mcL (0.10-0.90); Monocytes % (Auto) 7.4 % (1.0-12.0); Neutrophils % (Auto) 69.6 % (38.0-78.0); Platelet Count 224 K/mcL (140-440); RBC 4.77 M/mcL (4.63-6.08); WBC 9.3 K/mcL (4.5-11.0)
[2023-07-26 02:37] LABS: ALT/SGPT 63 U/L (<40); AST/SGOT 50 U/L (<40); Albumin 4.1 gm/dL (3.2-5.2); Albumin/Globulin Ratio 1.3 (1.0-2.3); Alkaline Phosphatase 96 U/L (39-117); Bilirubin,Total 0.5 mg/dL (0.1-1.0); Blood Urea Nitrogen 14 mg/dL (8-23); Calcium 9.6 mg/dL (8.6-10.4); Carbon Dioxide 21 mmol/L (22-30); Chloride 98 mmol/L (96-108); Globulin 3.2 gm/dL (2.2-3.7); Glomerular Filtration Rate 69; Glucose 303 mg/dL (70-105)
[2023-07-26] MEDS: morphine 4 MG/ML VIAL IV ONE (04:06)
[2023-07-26] MEDS: 0.9 % SODIUM CHLORIDE 1,000 ML IV SCH (05:14)
[2023-07-26] MEDS: morphine 4 MG/ML VIAL IV PRN (07:33)
[2023-07-26] MEDS ORDERED: DEXTROSE 50% 50 ML VIAL IV PRN (08:01)
[2023-07-26] MEDS ORDERED: DEXTROSE 31 GM ORAL.SUSP PO PRN (08:01)
[2023-07-26] MEDS: METOCLOPRAMIDE 10 MG/2 ML VIAL IV SCH (11:11)
[2023-07-26] MEDS: HYDROmorphone 1 MG/ML SYRINGE IV PRN (11:12)
[2023-07-26] MEDS: INSULIN LISPRO 1 UNIT/0.01 ML UNIT SQ SCH ×2 (12:50→17:53)
[2023-07-26] MEDS: ONDANSETRON 4 MG/2 ML VIAL IV PRN (14:15)
[2023-07-26] MEDS: PANTOPRAZOLE 40 MG VIAL IV SCH (17:44)
[2023-07-27 06:47] LABS: Basophils # (Auto) 0.01 K/mcL (0.00-0.30); Basophils % (Auto) 0.1 % (0.0-2.0); Eosinophils # (Auto) 0.07 K/mcL (0.00-0.70); Eosinophils % (Auto) 0.9 % (0.0-7.0); Hematocrit 46.2 % (40.1-51.0); Hemoglobin 15.4 g/dL (13.7-17.5); Lymphocytes # (Auto) 2.24 K/mcL (1.50-4.80); Lymphocytes % (Auto) 27.4 % (15.5-49.0); Mean Cell Volume 101.3 fL (80.0-100.0); Mean Corpuscular HGB Conc 33.3 g/dL (31.0-36.0); Mean Platelet Volume 10.9 fL (8.8-12.5); Monocytes # (Auto) 0.68 K/mcL (0.10-0.90); Monocytes % (Auto) 8.3 % (1.0-12.0); Neutrophils % (Auto) 63.2 % (38.0-78.0); Platelet Count 203 K/mcL (140-440); RBC 4.56 M/mcL (4.63-6.08); WBC 8.2 K/mcL (4.5-11.0)
[2023-07-27 08:10] LABS: ALT/SGPT 76 U/L (<40); AST/SGOT 74 U/L (<40); Albumin 3.9 gm/dL (3.2-5.2); Albumin/Globulin Ratio 1.3 (1.0-2.3); Alkaline Phosphatase 87 U/L (39-117); Bilirubin,Direct 0.4 mg/dL (<0.3); Bilirubin,Total 1.2 mg/dL (0.1-1.0); Blood Urea Nitrogen 10 mg/dL (8-23); Calcium 8.7 mg/dL (8.6-10.4); Carbon Dioxide 23 mmol/L (22-30); Chloride 100 mmol/L (96-108); Globulin 2.9 gm/dL (2.2-3.7); Glomerular Filtration Rate 92; Glucose 186 mg/dL (70-105); Lactate Dehydrogenase 179 U/L (135-225); Phosphorous 3.1 mg/dL (2.5-4.5); Triglycerides 324 mg/dL (<150); Uric Acid 3.7 mg/dL (2.5-8.0)
[2023-07-27] MEDS ORDERED: PROMETHAZINE 25 MG/ML VIAL IV PRN (15:34)
[2023-07-27] MEDS: ONDANSETRON 4 MG/2 ML VIAL IV PRN (16:35)
[2023-07-27] MEDS ORDERED: DIATRIZOATE MEGLU/DIATRIZO SOD 120ML BOTTLE PO ONE (17:43)
[2023-07-28 06:14] LABS: Basophils # (Auto) 0.01 K/mcL (0.00-0.30); Basophils % (Auto) 0.2 % (0.0-2.0); Eosinophils # (Auto) 0.11 K/mcL (0.00-0.70); Eosinophils % (Auto) 1.7 % (0.0-7.0); Hematocrit 43.5 % (40.1-51.0); Hemoglobin 14.6 g/dL (13.7-17.5); Lymphocytes # (Auto) 1.87 K/mcL (1.50-4.80); Lymphocytes % (Auto) 29.6 % (15.5-49.0); Mean Cell Volume 101.9 fL (80.0-100.0); Mean Corpuscular HGB Conc 33.6 g/dL (31.0-36.0); Mean Platelet Volume 10.9 fL (8.8-12.5); Monocytes # (Auto) 0.62 K/mcL (0.10-0.90); Monocytes % (Auto) 9.8 % (1.0-12.0); Neutrophils % (Auto) 58.5 % (38.0-78.0); Platelet Count 177 K/mcL (140-440); RBC 4.27 M/mcL (4.63-6.08); Red Cell Distribution Width 12.3 % (11.5-14.5); WBC 6.3 K/mcL (4.5-11.0)
[2023-07-28 06:40] LABS: ALT/SGPT 47 U/L (<40); AST/SGOT 44 U/L (<40); Albumin 3.6 gm/dL (3.2-5.2); Albumin/Globulin Ratio 1.3 (1.0-2.3); Alkaline Phosphatase 78 U/L (39-117); Bilirubin,Direct 0.3 mg/dL (<0.3); Bilirubin,Total 0.9 mg/dL (0.1-1.0); Blood Urea Nitrogen 9 mg/dL (8-23); Calcium 8.6 mg/dL (8.6-10.4); Carbon Dioxide 23 mmol/L (22-30); Chloride 100 mmol/L (96-108); Globulin 2.8 gm/dL (2.2-3.7); Glomerular Filtration Rate 92; Glucose 174 mg/dL (70-105); Lactate Dehydrogenase 178 U/L (135-225); Phosphorous 2.5 mg/dL (2.5-4.5); Triglycerides 265 mg/dL (<150); Uric Acid 4.1 mg/dL (2.5-8.0)
[2023-07-28] MEDS: amLODIPine 10 MG TABLET PO SCH (17:18)
[2023-07-28] MEDS: LOSARTAN 50 MG TABLET PO SCH (17:19)
== END 2023-07-28 18:52 | disposition home or self-care (01) | DRG 390 ==
LOC: ED 01:33 → MEDSUR 01:33 → OBSVTOIN 04:54 → MEDSUR 04:54
PROVIDERS: ADMIT Family Medicine Adult Medicine; ATTEND Family Medicine Adult Medicine